=== PATIENT | male | born 1965 | race African-American/Black ===

== ENCOUNTER 2019-08-01 16:15 | Inpatient (IN) | payer MEDICARE ==
[2019-08-02 21:19] LABS: Bilirubin Negative (Negative); Blood, Urine Negative (Negative); Clarity Clear (Clear); Glucose, Urine (Dipstick) Normal (Negative); Leukocyte Negative Leu/uL (Negative); Nitrite Negative (Negative); Protein, Urine (Dipstick) 20 mg/dL (Neg-Trace); Urobilinogen Normal mg/dL (Less than 2)
[2019-08-02 23:52] LABS: ALT (SGPT) 33 U/L (8-55); AST (SGOT) 41 U/L (5-34); Albumin 3.4 g/dL (3.5-5.0); Alkaline Phosphatase 48 U/L (40-110); Anion Gap 10 mmol/L (10-20); BUN (Urea Nitrogen) 14 mg/dL (8.4-25.7); Bilirubin, Total 0.5 mg/dL (0.2-1.2); Calc. Creatinine Clearance 0 mL/min (70-130); Calcium 8.3 mg/dL (7.8-10.44); Carbon Dioxide 27 mmol/L (22-29); Chloride 106 mmol/L (98-107); Estimated GFR-MDRD 90; Globulin 2.7 g/dL (2.4-3.5); Glucose 133 mg/dL (70-105); Potassium 3.6 mmol/L (3.5-5.1); Protein, Total 6.1 g/dL (6.0-8.3); Sodium 139 mmol/L (136-145)
[2019-08-03 02:40] LABS: Actual Bicarbonate (HCO3a) 24.4 mEq/L (22-28); Analyzer IN Cardio ER; Base Excess (BEa) 0.6 mEq/L (-2.0 to +3.0); CO2 Tension 36.4 mmHg (35.0-45.0); Calcium, Ionized 1.16 mmol/L (1.12-1.30); Carboxyhemoglobin (COHb) 0.5 gm% (0.0-3.0); Hemoglobin (Hb) 13.1 g/dL (14.0-18.0); O2 Tension (PaO2) 61.3 mmHg (80.0-100.0); pH, Arterial 7.44 (7.35-7.45)
[2019-08-03 02:41] LABS: Puncture Site LRA
[2019-08-03] MEDS ORDERED: Ondansetron PF 4 MG/2 ML Vial IVP PRN (07:17)
[2019-08-03] MEDS ORDERED: Bisacodyl 5 MG TAB PO PRN (07:17)
[2019-08-03] MEDS ORDERED: Acetaminophen 325 MG TAB PO PRN (07:17)
[2019-08-03] MEDS ORDERED: Calcium Carbonate 500 MG ChewTAB PO PRN (07:17)
[2019-08-03] MEDS ORDERED: Loperamide HCl 2 MG CAP PO PRN (07:17)
[2019-08-03] MEDS ORDERED: Ondansetron ODT 4 MG TAB PO PRN (07:17)
[2019-08-03] MEDS ORDERED: HYDROcodone/Acetaminophen 5/325 mg Tablet PO PRN (07:17)
[2019-08-03] MEDS ORDERED: Lorazepam 0.5 MG TAB PO PRN (07:19)
[2019-08-03] MEDS ORDERED: diphenhydrAMINE 25 MG CAP PO PRN (07:28)
[2019-08-03] MEDS ORDERED: Docusate 100 MG CAP PO PRN (07:28)
[2019-08-03] MEDS ORDERED: Labetalol HCl 100 MG/20 ML VIAL SLOW IVP PRN (07:28)
[2019-08-03] MEDS ORDERED: Benzonatate 100 MG CAP PO PRN (07:28)
[2019-08-03 08:31] LABS: Anion Gap 9 mmol/L (10-20); BUN (Urea Nitrogen) 13 mg/dL (8.4-25.7); Calc. Creatinine Clearance 0 mL/min (70-130); Calcium 8.1 mg/dL (7.8-10.44); Carbon Dioxide 27 mmol/L (22-29); Chloride 109 mmol/L (98-107); Estimated GFR-MDRD Greater than 90; Glucose 109 mg/dL (70-105); Potassium 3.6 mmol/L (3.5-5.1); Sodium 141 mmol/L (136-145)
[2019-08-03] MEDS ORDERED: Heparin 5,000 UNITS/ML VIAL SC SCH (09:00)
[2019-08-03] MEDS: Sodium Chloride 0.9% 1,000 ML IV SCH ×3 (09:21→17:32)
[2019-08-03] MEDS: Cephalexin 250 MG CAP PO SCH ×3 (09:24→20:43)
[2019-08-03] MEDS: Finasteride 5 MG TAB PO SCH (09:25)
[2019-08-03] MEDS: Lisinopril 5 MG TAB PO SCH (09:25)
[2019-08-03] MEDS: Famotidine 20 MG TAB PO SCH ×2 (09:25→20:41)
[2019-08-03] MEDS: Aripiprazole 10 MG TAB PO SCH (09:25)
[2019-08-03] MEDS ORDERED: FLU VACC QS2019-20(6MOS UP)/PF 60 MCG/0.5 ML SYRINGE IM ONE (13:30)
--- NOTE | 2019-08-03 15:34 | PDOC.HHP ---
Hospitalist HPI - History of Present Illness Uncontrolled mood disorder History of Present Illness: 54-year-old gentleman with past medical history of schizophrenia, bipolar disorder, anxiety, pulmonary embolism on oral anticoagulation was Xarelto, hypertension, BPH, GERD, and asthma who was rotten by his family for uncontrolled mood disorder. Patient has prior history of schizophrenia and takes antipsychotic medications. Patient at baseline is minimally verbal. Patient has become too much for his family to take care of and he was brought in because his psychiatric medications were not working. After sitting in the emergency department patient was found to have mildly abnormal labs and he was admitted to the medicine service. Patient was transferred from [place] for higher level of care. Patient was recently diagnosed with urinary tract infection at an outside facility and placed on antibiotics. I evaluated the patient on the medical unit. His eyes are open and he tracks around the room. I can get patient to open up his mouth and follow very simple commands. He will not make any words to me. He denies pain. Attempts to shake his head to questions. I have restarted the patient's home medications. Patient is on IV fluids for elevated CPK, though his renal function is normal. We will continue his antibiotics for urinary tract infection. Likely have patient evaluated by mental health in the next 24 to 48 hours pending clinical improvement. Hospitalist ROS - Review of Systems ROS unobtainable: due to mental status - Medication Medications: Active Medications Generic Name Dose Route Start Last Admin Trade Name Freq PRN Reason Stop Dose Admin Aripiprazole 20 mg 08/03/19 09:00 08/03/19 09:25 Abilify PO 20 mg DAILY SOPHIA Administration Cephalexin 500 mg 08/03/19 09:00 08/03/19 09:24 Keflex PO 500 mg TID SOPHIA Administration Famotidine 20 mg 08/03/19 09:00 08/03/19 09:25 Pepcid PO 20 mg BID SOPHIA Administration Finasteride 5 mg 08/03/19 09:00 08/03/19 09:25 Proscar PO 5 mg DAILY SOPHIA Administration Sodium Chloride 1,000 mls @ 150 mls/hr 08/03/19 06:45 08/03/19 14:45 Normal Saline 0.9% IV 08/05/19 15:00 Not Given .Q6H40M SOPHIA Lisinopril 5 mg 08/03/19 09:00 08/03/19 09:25 Zestril PO 5 mg DAILY SOPHIA Administration Sodium Chloride 10 ml 08/03/19 09:00 08/03/19 09:25 Flush - Normal Saline IVF 10 ml Q12HR SOPHIA Administration Hospitalist History - Past Medical History Source: patient, family, old records Cardiac: reports: HTN Pulmonary: reports: asthma Gastrointestinal: reports: GERD Psych: reports: Anxiety, Bipolar, Schizophrenia - Past Surgical History Past Surgical History: reports: Other - Family History Family History: reports: hypertension - Social History Smoking Status: Unknown if ever smoked Alcohol: reports: None Drugs: reports: none Living Situation: With Family Domestic Violence: Negative - Exam General Appearance: NAD General - other findings: eyes open, tracks around the room Eye: PERRL ENT: normocephalic atraumatic, moist mucosa Neck: supple, symmetric Heart: no murmur, no gallops, no rubs Respiratory: CTAB, no wheezes, no rales, no ronchi, normal chest expansion, no tachypnea Gastrointestinal: soft, non-tender, no guarding, no rigidity Extremities: 1+ LE edema Skin: no rashes Neurological: cranial nerve grossly intact, no focal deficits Musculoskeletal: generalized weakness Psychiatric - other findings: Limited secondary to non verbal status Hospitalist Results - Labs Result Diagrams: 08/03/19 07:44 Lab results: ABG pH 7.44 (7.35-7.45) 08/03/19 02:36 ABG pCO2 36.4 mmHg (35.0-45.0) 08/03/19 02:36 ABG pO2 61.3 mmHg (80.0-100.0) L 08/03/19 02:36 Sodium 141 mmol/L (136-145) 08/03/19 07:44 Potassium 3.6 mmol/L (3.5-5.1) 08/03/19 07:44 Chloride 109 mmol/L (98-107) H 08/03/19 07:44 Carbon Dioxide 27 mmol/L (22-29) 08/03/19 07:44 BUN 13 mg/dL (8.4-25.7) 08/03/19 07:44 Creatinine 1.03 mg/dL (0.7-1.3) 08/03/19 07:44 Glucose 109 mg/dL (70-105) H 08/03/19 07:44 Calcium 8.1 mg/dL (7.8-10.44) 08/03/19 07:44 Total Bilirubin 0.5 mg/dL (0.2-1.2) 08/02/19 23:12 AST 41 U/L (5-34) H 08/02/19 23:12 ALT 33 U/L (8-55) 08/02/19 23:12 Alkaline Phosphatase 48 U/L (40-110) 08/02/19 23:12 Ammonia 34 umol/L (18-72) 08/01/19 19:19 Creatine Kinase 2477 U/L (30-200) H 08/03/19 01:51 Troponin I 0.011 ng/mL (< 0.028) 08/03/19 01:51 Serum Total Protein 6.1 g/dL (6.0-8.3) 08/02/19 23:12 Albumin 3.4 g/dL (3.5-5.0) L 08/02/19 23:12 Urine Ketones Trace mg/dL (Negative) A 08/02/19 20:54 Urine Blood Negative (Negative) 08/02/19 20:54 Urine Nitrite Negative (Negative) 08/02/19 20:54 Ur Leukocyte Esterase Negative Shobha/uL (Negative) 08/02/19 20:54 Hospitalist H&P A/P - Problem (1) Rhabdomyolysis Code(s): M62.82 - RHABDOMYOLYSIS Status: Resolved (2) Acute urinary retention Code(s): R33.8 - OTHER RETENTION OF URINE Status: Acute (3) UTI (urinary tract infection) Status: Acute (4) Weakness Code(s): R53.1 - WEAKNESS Status: Acute (5) Bipolar disorder Code(s): F31.9 - BIPOLAR DISORDER, UNSPECIFIED Status: Chronic Qualifiers: Active/Remission status: remission status unspecified Qualified Code(s): F31.9 - Bipolar disorder, unspecified (6) Diabetes mellitus type 2 in obese Code(s): E11.9 - TYPE 2 DIABETES MELLITUS WITHOUT COMPLICATIONS; E66.9 - OBESITY , UNSPECIFIED Status: Chronic (7) H/O thromboembolism Code(s): Z86.718 - PERSONAL HISTORY OF OTHER VENOUS THROMBOSIS AND EMBOLISM Status: Chronic (8) History of deep venous thrombosis or pulmonary embolus Code(s): DGC9954 - Status: Chronic (9) Hypertension Code(s): I10 - ESSENTIAL (PRIMARY) HYPERTENSION Status: Chronic Qualifiers: Hypertension type: essential hypertension Qualified Code(s): I10 - Essential (primary) hypertension (10) Morbid obesity with BMI of 40.0-44.9, adult Code(s): E66.01 - MORBID (SEVERE) OBESITY DUE TO EXCESS CALORIES; Z68.41 - BODY MASS INDEX (BMI) 40.0-44.9, ADULT Status: Chronic (11) CHARLIE (obstructive sleep apnea) Code(s): G47.33 - OBSTRUCTIVE SLEEP APNEA (ADULT) (PEDIATRIC) Status: Chronic (12) Schizophrenia Code(s): F20.9 - SCHIZOPHRENIA, UNSPECIFIED Status: Chronic (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 Status: Resolved (14) Dehydration Code(s): E86.0 - DEHYDRATION Status: Resolved - Plan Plan: Plan: admit to medical unit IV fluid resuscitation for mildly elevated CPK renal function normal trend renal function, if remains stable in the next 24-48 hours consider evaluation by mental health history is very limited from the patient and his family continue oral antibiotics for recently diagnosed urinary tract infection and outside facility Continue Xarelto for Hx of PE/DVT continue home antipsychotic medications, he seems to be at his prior level of functioning status blood sugar control blood pressure control G.I. prophylaxis DVT prophylaxis
[2019-08-03] MEDS: Rivaroxaban 10 MG TAB PO SCH (15:56)
[2019-08-03] MEDS: Budesonide 0.5 MG/2 ML NEB NEB SCH (19:33)
[2019-08-03] MEDS: Mometasone/Formoterol 120 PUFF INHALER INH SCH (19:35)
[2019-08-03] MEDS: Montelukast Sodium 10 mg Tablet PO SCH (20:41)
[2019-08-03] MEDS: Tamsulosin HCl 0.4 MG CAP PO SCH (20:41)
[2019-08-03] MEDS: Benztropine 1 MG TAB PO SCH (20:42)
[2019-08-04] MEDS: Sodium Chloride 0.9% 1,000 ML IV SCH ×3 (00:30→15:22)
[2019-08-04 06:05] LABS: Anion Gap 9 mmol/L (10-20); BUN (Urea Nitrogen) 12 mg/dL (8.4-25.7); Calc. Creatinine Clearance 173 mL/min (70-130); Calcium 8.3 mg/dL (7.8-10.44); Carbon Dioxide 26 mmol/L (22-29); Chloride 109 mmol/L (98-107); Estimated GFR-MDRD Greater than 90; Glucose 110 mg/dL (70-105); Potassium 3.6 mmol/L (3.5-5.1); Sodium 140 mmol/L (136-145)
[2019-08-04] MEDS: Mometasone/Formoterol 120 PUFF INHALER INH SCH ×2 (06:44→18:02)
[2019-08-04] MEDS: Budesonide 0.5 MG/2 ML NEB NEB SCH ×2 (06:44→18:01)
[2019-08-04] MEDS: Famotidine 20 MG TAB PO SCH ×2 (08:59→20:03)
[2019-08-04] MEDS: risperiDONE 1 MG TAB PO SCH (08:59)
[2019-08-04] MEDS: Aripiprazole 10 MG TAB PO SCH (08:59)
[2019-08-04] MEDS: Lisinopril 5 MG TAB PO SCH (08:59)
[2019-08-04] MEDS: Finasteride 5 MG TAB PO SCH (08:59)
[2019-08-04] MEDS: Cephalexin 250 MG CAP PO SCH ×3 (08:59→20:02)
[2019-08-04] MEDS: Allopurinol 100 MG TAB PO SCH (08:59)
--- NOTE | 2019-08-04 14:44 | PDOC.HOSPP ---
- Subjective Encounter Date: 08/04/19 Encounter Time: 14:33 Subjective: Patient in bed, complains of L arm swelling and cough. No chest pain or shortness of breath. - Objective Vital Signs & Weight: Vital Signs (12 hours) Temp Pulse Resp BP Pulse Ox 08/04/19 11:26 98.4 F 70 20 139/96 H 98 08/04/19 08:00 100 08/04/19 07:50 98.5 F 53 L 20 161/102 H 100 08/04/19 06:44 70 18 08/04/19 04:10 97.6 F 65 20 143/64 H 96 Weight Weight 326 lb I&O: 08/03/19 08/04/19 08/05/19 06:59 06:59 06:59 Intake Total 2250 Output Total 3100 Balance -850 Result Diagrams: 08/04/19 05:05 Additional Labs: Accuchecks 08/04/19 08/03/19 08/03/19 04:12 19:32 16:47 POC Glucose 104 119 H 99 Hospitalist ROS - Medication Medications: Active Medications Generic Name Dose Route Start Last Admin Trade Name Jonasq PRN Reason Stop Dose Admin Allopurinol 100 mg 08/04/19 09:00 08/04/19 08:59 Zyloprim PO 100 mg DAILY SOPHIA Administration Aripiprazole 20 mg 08/03/19 09:00 08/04/19 08:59 Abilify PO 20 mg DAILY SOPHIA Administration Benztropine Mesylate 1 mg 08/03/19 21:00 08/03/19 20:42 Cogentin PO 1 mg HS SOPHIA Administration Budesonide 0.5 mg 08/03/19 18:30 08/04/19 06:44 Pulmicort Neb Solution NEB 0.5 mg BID-RT SOPHIA Administration Cephalexin 500 mg 08/03/19 09:00 08/04/19 08:59 Keflex PO 500 mg TID SOPHIA Administration Famotidine 20 mg 08/03/19 09:00 08/04/19 08:59 Pepcid PO 20 mg BID SOPHIA Administration Finasteride 5 mg 08/03/19 09:00 08/04/19 08:59 Proscar PO 5 mg DAILY SOPHIA Administration Sodium Chloride 1,000 mls @ 150 mls/hr 08/03/19 06:45 08/04/19 09:05 Normal Saline 0.9% IV 08/05/19 15:00 Not Given .Q6H40M SOPHIA Lisinopril 5 mg 08/03/19 09:00 08/04/19 08:59 Zestril PO 5 mg DAILY SOPHIA Administration Mometasone Furoate/Formoterol Fumar 2 puff 08/03/19 18:30 08/04/19 06:44 Dulera 200 Mcg/5 Mcg Inhaler INH 2 puff BID-RT SOPHIA Administration Montelukast Sodium 10 mg 08/03/19 21:00 08/03/19 20:41 Singulair PO 10 mg QPM SOPHIA Administration Risperidone 2 mg 08/04/19 09:00 08/04/19 08:59 Risperidone PO 2 mg DAILY SOPHIA Administration Rivaroxaban 20 mg 08/03/19 17:00 08/03/19 15:56 Xarelto PO 20 mg 1700 SOPHIA Administration Sodium Chloride 10 ml 08/03/19 09:00 08/04/19 08:59 Flush - Normal Saline IVF 10 ml Q12HR SOPHIA Administration Tamsulosin HCl 0.4 mg 08/03/19 21:00 08/03/19 20:41 Flomax PO 0.4 mg HS SOPHIA Administration - Exam General Appearance: NAD, awake alert Eye: PERRL, anicteric sclera ENT: normocephalic atraumatic, no oropharyngeal lesions, moist mucosa Neck: supple, symmetric, no JVD, no thyromegaly, no lymphadenopathy, no carotid bruit Heart: RRR, no murmur, no gallops, no rubs, normal peripheral pulses Respiratory: CTAB, no wheezes, no rales, no ronchi, normal chest expansion, no tachypnea, normal percussion Gastrointestinal: soft, non-tender, non-distended, normal bowel sounds, no palpable masses, no hepatomegaly, no splenomegaly, no bruit Extremities - other findings: 1+ edema in lower and L upper extremities Skin: normal turgor, no lesions, no rashes Neurological: cranial nerve grossly intact, normal sensation to touch, no weakness, no focal deficits, no new deficit Musculoskeletal: normal tone, normal strength, no muscle wasting Psychiatric: flat affect Hosp A/P - Plan admit to medical unit IV fluid resuscitation for mildly elevated CPK renal function normal trend renal function, if remains stable in the next 24-48 hours consider evaluation by mental health history is very limited from the patient and his family continue oral antibiotics for recently diagnosed urinary tract infection and outside facility Continue Xarelto for Hx of PE/DVT continue home antipsychotic medications, he seems to be at his prior level of functioning status blood sugar control blood pressure control G.I. prophylaxis DVT prophylaxis - IV lasix once, lower IV fluid rate for early volume overload signs, recheck CK in AM, consider d/c if normalizing
[2019-08-04] MEDS ORDERED: Furosemide 20 MG/2 ML VIAL SLOW IVP SCH (14:45)
[2019-08-04 16:59] LABS: Anion Gap 11 mmol/L (10-20); BUN (Urea Nitrogen) 12 mg/dL (8.4-25.7); Calc. Creatinine Clearance 166 mL/min (70-130); Calcium 8.8 mg/dL (7.8-10.44); Carbon Dioxide 27 mmol/L (22-29); Chloride 105 mmol/L (98-107); Estimated GFR-MDRD 90; Glucose 113 mg/dL (70-105); Potassium 3.4 mmol/L (3.5-5.1); Sodium 140 mmol/L (136-145)
[2019-08-04] MEDS ORDERED: Potassium Chloride 20 MEQ/100 ML PREMIX BAG IVPB SCH (18:00)
[2019-08-04] MEDS ORDERED: Potassium Chloride 20 MEQ in Premix Bag 1 BAG IVPB SCH (18:00)
[2019-08-04] MEDS: Rivaroxaban 10 MG TAB PO SCH (18:10)
[2019-08-04] MEDS: Benztropine 1 MG TAB PO SCH (20:02)
[2019-08-04] MEDS: Tamsulosin HCl 0.4 MG CAP PO SCH (20:02)
[2019-08-04] MEDS: Montelukast Sodium 10 mg Tablet PO SCH (20:03)
[2019-08-04] MEDS: Melatonin 3 MG TAB PO PRN (20:07)
[2019-08-05] MEDS: Sodium Chloride 0.9% 1,000 ML IV SCH ×3 (02:00→20:46)
[2019-08-05] MEDS: Mometasone/Formoterol 120 PUFF INHALER INH SCH ×2 (06:52→18:25)
[2019-08-05] MEDS: Budesonide 0.5 MG/2 ML NEB NEB SCH ×2 (06:53→18:23)
[2019-08-05] MEDS: risperiDONE 1 MG TAB PO SCH (09:10)
[2019-08-05] MEDS: Lisinopril 5 MG TAB PO SCH (09:14)
[2019-08-05] MEDS: Famotidine 20 MG TAB PO SCH ×2 (09:14→20:45)
[2019-08-05] MEDS: Finasteride 5 MG TAB PO SCH (09:14)
[2019-08-05] MEDS: Aripiprazole 10 MG TAB PO SCH (09:14)
[2019-08-05] MEDS: Cephalexin 250 MG CAP PO SCH ×3 (10:39→20:45)
[2019-08-05] MEDS: Allopurinol 100 MG TAB PO SCH (10:40)
[2019-08-05] MEDS: Rivaroxaban 10 MG TAB PO SCH (14:47)
--- NOTE | 2019-08-05 18:51 | PDOC.HOSPP ---
- Subjective Encounter Date: 08/05/19 Encounter Time: 10:00 Subjective: Patient seen and examined for Rhabdo. No new CP/SOB. No new complaints. No overnight events - Objective Vital Signs & Weight: Vital Signs (12 hours) Temp Pulse Resp BP Pulse Ox 08/05/19 18:23 66 16 95 08/05/19 09:14 66 08/05/19 07:47 98.7 F 66 20 124/81 95 08/05/19 06:54 60 16 95 08/05/19 06:53 60 16 95 08/05/19 06:52 60 16 95 Weight Weight 326 lb I&O: 08/04/19 08/05/19 08/06/19 06:59 06:59 06:59 Intake Total 2250 2250 Output Total 3100 4900 Balance -850 -2650 Result Diagrams: 08/04/19 16:25 Additional Labs: Laboratory Tests 08/03/19 08/04/19 08/05/19 01:51 16:25 05:39 Creatine Kinase 2477 H 1678 H 1025 H Hospitalist ROS - Review of Systems ROS unobtainable: due to mental status - Medication Medications: Active Medications Generic Name Dose Route Start Last Admin Trade Name Freq PRN Reason Stop Dose Admin Acetaminophen 650 mg 08/03/19 07:17 08/04/19 20:03 Tylenol PO 650 mg Q4H PRN Administration Headache/Fever/Mild Pain (1-3) Albuterol/Ipratropium 3 ml 08/03/19 07:28 08/05/19 06:54 Duoneb NEB 3 ml [id number] PRN Administration SOB &/or Wheezing Allopurinol 100 mg 08/04/19 09:00 08/05/19 10:40 Zyloprim PO 100 mg DAILY SOPHIA Administration Aripiprazole 20 mg 08/03/19 09:00 08/05/19 09:14 Abilify PO 20 mg DAILY SOPHIA Administration Benztropine Mesylate 1 mg 08/03/19 21:00 08/04/19 20:02 Cogentin PO 1 mg HS SOPHIA Administration Budesonide 0.5 mg 08/03/19 18:30 08/05/19 18:23 Pulmicort Neb Solution NEB 0.5 mg BID-RT SOPHIA Administration Calcium Carbonate 1,000 mg 08/03/19 07:17 08/05/19 14:53 Tums PO 1,000 mg Q4H PRN Administration Heartburn or Indigestion Cephalexin 500 mg 08/03/19 09:00 08/05/19 14:47 Keflex PO 500 mg TID SOPHIA Administration Docusate Sodium 100 mg 08/03/19 07:28 08/04/19 20:07 Colace PO 100 mg BIDPRN PRN Administration Constipation Famotidine 20 mg 08/03/19 09:00 08/05/19 09:14 Pepcid PO 20 mg BID SOPHIA Administration Finasteride 5 mg 08/03/19 09:00 08/05/19 09:14 Proscar PO 5 mg DAILY SOPHIA Administration Sodium Chloride 1,000 mls @ 100 mls/hr 08/04/19 14:45 08/05/19 09:17 Normal Saline 0.9% IV 1,000 mls .Q10H SOPHIA Administration Lisinopril 5 mg 08/03/19 09:00 08/05/19 09:14 Zestril PO 5 mg DAILY SOPHIA Administration Melatonin 3 mg 08/03/19 07:28 08/04/19 20:07 Melatonin PO 3 mg HS PRN Administration Insomnia Mometasone Furoate/Formoterol Fumar 2 puff 08/03/19 18:30 08/05/19 18:25 Dulera 200 Mcg/5 Mcg Inhaler INH 2 puff BID-RT SOPHIA Administration Montelukast Sodium 10 mg 08/03/19 21:00 08/04/19 20:03 Singulair PO 10 mg QPM SOPHIA Administration Risperidone 2 mg 08/04/19 09:00 08/05/19 09:10 Risperidone PO 2 mg DAILY SOPHIA Administration Rivaroxaban 20 mg 08/03/19 17:00 08/05/19 14:47 Xarelto PO 20 mg 1700 SOPHIA Administration Sodium Chloride 10 ml 08/03/19 09:00 08/05/19 10:04 Flush - Normal Saline IVF Not Given Q12HR SOPHIA Tamsulosin HCl 0.4 mg 08/03/19 21:00 08/04/19 20:02 Flomax PO 0.4 mg HS SOPHIA Administration - Exam General Appearance: NAD Heart: RRR, no gallops Respiratory: no wheezes, no ronchi Gastrointestinal: non-tender, non-distended, normal bowel sounds Extremities: no cyanosis Hosp A/P - Plan Rhabdomyolysis Urinary retention - rob placed in ER CKD 2 DM2 h/o VTE - on Xarelto Hypokalemia Schizophrenia Other issues per previous notes PLAN: Cont IVF CK improving Replace Potassium Recheck CK in AM MHMR eval in AM Cont other home meds
[2019-08-05] MEDS: Montelukast Sodium 10 mg Tablet PO SCH (20:45)
[2019-08-05] MEDS: Melatonin 3 MG TAB PO PRN (20:45)
[2019-08-05] MEDS: Benztropine 1 MG TAB PO SCH (20:45)
[2019-08-05] MEDS: Tamsulosin HCl 0.4 MG CAP PO SCH (20:45)
[2019-08-06] MEDS: Mometasone/Formoterol 120 PUFF INHALER INH SCH ×2 (06:23→18:47)
[2019-08-06] MEDS: Budesonide 0.5 MG/2 ML NEB NEB SCH ×2 (06:25→18:44)
[2019-08-06] MEDS: Sodium Chloride 0.9% 1,000 ML IV SCH ×2 (07:48→18:02)
[2019-08-06] MEDS: risperiDONE 1 MG TAB PO SCH (09:12)
[2019-08-06] MEDS: Cephalexin 250 MG CAP PO SCH ×3 (09:13→20:38)
[2019-08-06] MEDS: Allopurinol 100 MG TAB PO SCH (09:13)
[2019-08-06] MEDS: Aripiprazole 10 MG TAB PO SCH (09:13)
[2019-08-06] MEDS: Famotidine 20 MG TAB PO SCH ×2 (09:14→20:37)
[2019-08-06] MEDS: Finasteride 5 MG TAB PO SCH (09:14)
[2019-08-06] MEDS: Lisinopril 5 MG TAB PO SCH (09:14)
[2019-08-06] MEDS: Rivaroxaban 10 MG TAB PO SCH (18:02)
[2019-08-06] MEDS: Benztropine 1 MG TAB PO SCH (20:37)
[2019-08-06] MEDS: Montelukast Sodium 10 mg Tablet PO SCH (20:38)
[2019-08-06] MEDS: Tamsulosin HCl 0.4 MG CAP PO SCH (20:38)
--- NOTE | 2019-08-06 23:44 | PDOC.HOSPP ---
- Subjective Encounter Date: 08/06/19 Encounter Time: 10:45 Subjective: Patient seen and examined for AMS. Remains confused. No new complaints. No overnight events - Objective Vital Signs & Weight: Vital Signs (12 hours) Temp Pulse Resp BP Pulse Ox 08/06/19 20:00 97.5 F L 80 16 142/86 H 96 08/06/19 18:44 88 12 95 Weight Weight 326 lb I&O: 08/05/19 08/06/19 08/07/19 06:59 06:59 06:59 Intake Total 2250 2400 2000 Output Total 4900 1800 Balance -2650 600 1999 Result Diagrams: 08/07/19 05:51 Additional Labs: Laboratory Tests 08/04/19 08/05/19 08/06/19 16:25 05:39 05:41 Creatine Kinase 1678 H 1025 H 693 H Hospitalist ROS - Review of Systems ROS unobtainable: due to mental status - Medication Medications: Active Medications Generic Name Dose Route Start Last Admin Trade Name Freq PRN Reason Stop Dose Admin Acetaminophen 650 mg 08/03/19 07:17 08/04/19 20:03 Tylenol PO 650 mg Q4H PRN Administration Headache/Fever/Mild Pain (1-3) Hydrocodone Bitart/Acetaminophen 1 tab 08/03/19 07:17 08/06/19 09:16 [place] 5/325 PO 1 tab Q4H PRN Administration Moderate to Severe Pain (6-10) Albuterol/Ipratropium 3 ml 08/03/19 07:28 08/06/19 06:25 Duoneb NEB 3 ml [id number] PRN Administration SOB &/or Wheezing Allopurinol 100 mg 08/04/19 09:00 08/06/19 09:13 Zyloprim PO 100 mg DAILY SOPHIA Administration Aripiprazole 20 mg 08/03/19 09:00 08/06/19 09:13 Abilify PO 20 mg DAILY SOPHIA Administration Benztropine Mesylate 1 mg 08/03/19 21:00 08/06/19 20:37 Cogentin PO 1 mg HS SOPHIA Administration Budesonide 0.5 mg 08/03/19 18:30 08/06/19 18:44 Pulmicort Neb Solution NEB 0.5 mg BID-RT SOPHIA Administration Calcium Carbonate 1,000 mg 08/03/19 07:17 08/05/19 14:53 Tums PO 1,000 mg Q4H PRN Administration Heartburn or Indigestion Cephalexin 500 mg 08/03/19 09:00 08/06/19 20:38 Keflex PO 500 mg TID SOPHIA Administration Docusate Sodium 100 mg 08/03/19 07:28 08/04/19 20:07 Colace PO 100 mg BIDPRN PRN Administration Constipation Famotidine 20 mg 08/03/19 09:00 08/06/19 20:37 Pepcid PO 20 mg BID SOPHIA Administration Finasteride 5 mg 08/03/19 09:00 08/06/19 09:14 Proscar PO 5 mg DAILY SOPHIA Administration Sodium Chloride 1,000 mls @ 100 mls/hr 08/04/19 14:45 08/06/19 18:02 Normal Saline 0.9% IV Not Given .Q10H SOPHIA Lisinopril 5 mg 08/03/19 09:00 08/06/19 09:14 Zestril PO 5 mg DAILY SOPHIA Administration Melatonin 3 mg 08/03/19 07:28 08/05/19 20:45 Melatonin PO 3 mg HS PRN Administration Insomnia Mometasone Furoate/Formoterol Fumar 2 puff 08/03/19 18:30 08/06/19 18:47 Dulera 200 Mcg/5 Mcg Inhaler INH 2 puff BID-RT SOPHIA Administration Montelukast Sodium 10 mg 08/03/19 21:00 08/06/19 20:38 Singulair PO 10 mg QPM SOPHIA Administration Risperidone 2 mg 08/04/19 09:00 08/06/19 09:12 Risperidone PO 2 mg DAILY SOPHIA Administration Rivaroxaban 20 mg 08/03/19 17:00 08/06/19 18:02 Xarelto PO 20 mg 1700 SOPHIA Administration Sodium Chloride 10 ml 08/03/19 09:00 08/06/19 20:38 Flush - Normal Saline IVF Not Given Q12HR SOPHIA Tamsulosin HCl 0.4 mg 08/03/19 21:00 08/06/19 20:38 Flomax PO 0.4 mg HS SOPHIA Administration - Exam General Appearance: NAD Heart: RRR, no gallops Respiratory: no wheezes, no ronchi Gastrointestinal: non-tender, non-distended, normal bowel sounds Psychiatric: not oriented Hosp A/P - Plan Rhabdomyolysis Urinary retention - rob placed in ER CKD 2 DM2 h/o VTE - on Xarelto Hypokalemia Schizophrenia Other issues per previous notes PLAN: Cont IVF MHMR eval Cont other meds Check CK in AM Cont Xarelto Cont sliding scale DC Rob
[2019-08-06] MEDS ORDERED: Sodium Chloride 0.9% 1,000 ML IV SCH (23:57)
[2019-08-07] MEDS: Budesonide 0.5 MG/2 ML NEB NEB SCH (05:13)
[2019-08-07] MEDS: Mometasone/Formoterol 120 PUFF INHALER INH SCH (05:46)
[2019-08-07 06:44] LABS: Anion Gap 12 mmol/L (10-20); BUN (Urea Nitrogen) 12 mg/dL (8.4-25.7); CK (CPK) 534 U/L (30-200); Calc. Creatinine Clearance 160 mL/min (70-130); Calcium 9.3 mg/dL (7.8-10.44); Carbon Dioxide 25 mmol/L (22-29); Chloride 103 mmol/L (98-107); Estimated GFR-MDRD 86; Glucose 120 mg/dL (70-105); Potassium 4.1 mmol/L (3.5-5.1); Sodium 136 mmol/L (136-145)
[2019-08-07 08:41] VITALS: BP 124/84; TEMP 98.9
[2019-08-07] MEDS: Cephalexin 250 MG CAP PO SCH ×2 (09:30→16:52)
[2019-08-07] MEDS: risperiDONE 1 MG TAB PO SCH (09:30)
[2019-08-07] MEDS: Finasteride 5 MG TAB PO SCH (09:31)
[2019-08-07] MEDS: Allopurinol 100 MG TAB PO SCH (09:31)
[2019-08-07] MEDS: Famotidine 20 MG TAB PO SCH (09:31)
[2019-08-07] MEDS: Aripiprazole 10 MG TAB PO SCH (09:31)
[2019-08-07] MEDS: Lisinopril 5 MG TAB PO SCH (09:31)
--- NOTE | 2019-08-07 19:07 | DIS ---
DATE OF ADMISSION: 08/03/2019 DATE OF DISCHARGE: 08/07/2019 DISCHARGE DISPOSITION: Home. FOLLOWUP: Follow up with primary care physician at [facility] in 1 week. The patient was seen and examined on the day of discharge. Denies any new complaints. His mentation has significantly improved. The patient is able to hold a conversation. BRIEF HOSPITAL COURSE: The patient is a 54-year-old male with schizophrenia, presented to the emergency room with altered mentation. His workup was consistent with rhabdomyolysis with urinary retention. A Christiansen catheter was placed. He was monitored in the psych unit in the emergency room. Next day, his CK went up to 2477 from 1307. He was admitted at this point. He showed good improvement with IV fluids. His mentation has significantly improved. He has been evaluated by [facility] and has been cleared for discharge with family. SIGNIFICANT LABORATORY DATA: Creatinine 1.08 at discharge. Potassium 3.4. CK at discharge is 534. Repeat CK as outpatient is recommended. Urine drug screen was negative. FINAL DIAGNOSES: 1. Toxic metabolic encephalopathy, present on admission, multifactorial. 2. Rhabdomyolysis. 3. Hypokalemia. 4. Urinary retention. His Christiansen catheter was discontinued. The patient is voiding. 5. Chronic kidney disease, stage 2. 6. Diabetes mellitus type 2. 7. History of venous thromboembolism, on Xarelto. 8. Hypokalemia. 9. Schizophrenia. 10. Mild intermittent asthma. 11. Gastroesophageal reflux disease. The patient understands the above plan of care. Job ID: [id number]
== END 2019-08-07 17:09 | disposition home or self-care (01) | DRG 557 ==
LOC: ERS 16:15 → T4-A 08-03 06:17
PROVIDERS: ADMIT Internal Medicine; ATTEND Internal Medicine
PROC: 0T9B70Z Drainage of Bladder with Drainage Device, Via Natural or Artificial Opening (ICD-10-PCS; principal; 2019-08-03)
DX: M62.82 Rhabdomyolysis (principal); G92 Toxic encephalopathy; F20.2 Catatonic schizophrenia; F31.9 Bipolar disorder, unspecified; F41.9 Anxiety disorder, unspecified; K21.9 Gastro-esophageal reflux disease without esophagitis; N40.1 Benign prostatic hyperplasia with lower urinary tract symptoms; R33.8 Other retention of urine; G47.33 Obstructive sleep apnea (adult) (pediatric); E86.0 Dehydration; I12.9 Hypertensive chronic kidney disease with stage 1 through stage 4 chronic kidney disease, or unspecified chronic kidney disease; N18.2 Chronic kidney disease, stage 2 (mild); E11.22 Type 2 diabetes mellitus with diabetic chronic kidney disease; J45.20 Mild intermittent asthma, uncomplicated; E87.6 Hypokalemia; Z86.711 Personal history of pulmonary embolism; Z79.01 Long term (current) use of anticoagulants; Z86.718 Personal history of other venous thrombosis and embolism
CPT/HCPCS: 36415; 36416; 80048; 80053; 81003; 82140; 82550; 82805; 84484; 94640; J1940; J3480; J7620; J7626

== ENCOUNTER 2019-10-03 14:26 | Emergency (ER) | payer MEDICARE ==
[2019-10-03] MEDS ORDERED: Acetaminophen 500 MG TAB ONE (15:11)
--- NOTE | 2019-10-03 15:18 | ULT ---
EXAM: US Testicular W Doppler PROVIDED CLINICAL HISTORY: Testicular pain for one year COMPARISON: None FINDINGS: The testicles demonstrate a normal grayscale sonographic appearance and are symmetric in size. The ri ght and left epididymis demonstrate no significant abnormality. Tiny left epididymal head cyst. No significant hydrocele. Color Doppler and spectral analysis of the testicular waveforms demonstrates f low bilaterally. IMPRESSION: No evidence for an acute process.
[2019-10-03 16:13] LABS: Syphilis Antibody Nonreactive (Nonreactive); Syphilis Antibody Index 0.07 S/CO (<1.00 Non-Reactive)
== END 2019-10-03 16:48 | disposition home or self-care (01) ==
LOC: ERS 14:26
DX: N50.812 Left testicular pain (principal); I10 Essential (primary) hypertension; K21.9 Gastro-esophageal reflux disease without esophagitis; E11.9 Type 2 diabetes mellitus without complications; J45.909 Unspecified asthma, uncomplicated; F31.9 Bipolar disorder, unspecified; Z86.711 Personal history of pulmonary embolism
CPT/HCPCS: 36415; 76870; 86780; 93976

== ENCOUNTER 2020-08-23 18:05 | Emergency (ER) | payer MEDICARE ==
[2020-08-23] MEDS ORDERED: Nitroglycerin 2% Ointment 1 INCH/1 GM Packet ONE (18:50)
[2020-08-23 19:02] LABS: #Basophils 0.1 thou/uL (0.0-0.2); #Eosinphils 0.2 thou/uL (0.0-0.7); #Monocytes 0.3 thou/uL (0.11-0.59); #Neutrophils 2.1 thou/uL (1.40-6.50); %Basophils 1.1 % (0.0-1.0); %Monocytes 6.9 % (0.0-10.0); %Neutrophils 44.9 % (42.0-75.0); Hemoglobin 13.6 g/dL (14.0-18.0); Mean Corpuscular HGB CONC 32.9 g/dL (32.0-36.0); Mean Corpuscular Hemoglobin 29.9 pg (27.0-31.0); Mean Platelet Volume 8.2 fL (7.4-10.4); Platelet Count 174 thou/uL (130-400); RBC Distribution Width 12.8 % (11.5-14.5); Red Blood Cell (RBC) Count 4.56 mill/uL (4.70-6.10); White Blood Cell (WBC) Count 4.7 thou/uL (4.8-10.8)
[2020-08-23 19:24] LABS: ALT (SGPT) 30 U/L (8-55); AST (SGOT) 31 U/L (5-34); Albumin 3.8 g/dL (3.5-5.0); Alkaline Phosphatase 61 U/L (40-110); Anion Gap 9 mmol/L (10-20); BUN (Urea Nitrogen) 12 mg/dL (8.4-25.7); Bilirubin, Total 0.6 mg/dL (0.2-1.2); Calc. Creatinine Clearance 0 mL/min (70-130); Calcium 8.8 mg/dL (7.8-10.44); Carbon Dioxide 29 mmol/L (22-29); Chloride 104 mmol/L (98-107); Globulin 2.9 g/dL (2.4-3.5); Glucose 95 mg/dL (70-105); Lipase 27 U/L (8-78); Magnesium 1.8 mg/dL (1.6-2.6); Potassium 3.8 mmol/L (3.5-5.1); Protein, Total 6.7 g/dL (6.0-8.3); Sodium 138 mmol/L (136-145)
[2020-08-23 19:39] LABS: Bilirubin Negative (Negative); Blood, Urine Negative (Negative); Clarity Clear (Clear); Glucose, Urine (Dipstick) Normal (Negative); Ketone, Urine Negative (Negative); Leukocyte Negative Leu/uL (Negative); Nitrite Negative (Negative); Protein, Urine (Dipstick) Negative (Neg-Trace); Specific Gravity, Urine 1.011 (1.002-1.036); Urobilinogen Normal mg/dL (Less than 2)
[2020-08-23 22:30] LABS: Troponin I 0.018 ng/mL (< 0.028)
== END 2020-08-23 23:13 | disposition home or self-care (01) ==
LOC: ERS 18:05
DX: R07.9 Chest pain, unspecified (principal); Z79.899 Other long term (current) drug therapy; K21.9 Gastro-esophageal reflux disease without esophagitis; I10 Essential (primary) hypertension; J45.909 Unspecified asthma, uncomplicated; E11.9 Type 2 diabetes mellitus without complications
CPT/HCPCS: 36415; 71045; 80053; 81003; 83690; 83735; 83880; 84484; 85025; 87086; 93005